=== PATIENT | female | born 1955 | race Caucasian/White ===

== ENCOUNTER → 2017-06-19 | Outpatient (CLI) | payer OTHER ==
[~2017-06-19] MED LIST: ALEVE220 M1 PO; CEFADROXIL500 MG PO; PAIN RELIEF500 MG PO; ULTRACET PO
== END | disposition home or self-care (01) ==
LOC: MRI 06-18 09:30
DX: M25.461 Effusion, right knee (principal)
CPT/HCPCS: 73721

== ENCOUNTER → 2017-06-19 | Emergency (ER) | payer OTHER ==
[~2017-06-19] VITALS: Ht 170.2 cm; Wt 71.2 kg
== END | disposition home or self-care (01) ==
LOC: ER 12:15
DX: M25.461 Effusion, right knee (principal)

== ENCOUNTER 2017-09-20 10:47 | Outpatient (CLI) | payer OTHER | END 2017-09-20 12:30 | disposition home or self-care (01) | LOC: MAMO-SONO 10:47 | DX: Z12.31 Encounter for screening mammogram for malignant neoplasm of breast (principal); R10.2 Pelvic and perineal pain; R10.84 Generalized abdominal pain; C50.112 Malignant neoplasm of central portion of left female breast ==

== ENCOUNTER → 2017-09-20 | Outpatient (CLI) | payer OTHER | END | disposition home or self-care (01) | LOC: LAB 10:37 | DX: C50.112 Malignant neoplasm of central portion of left female breast (principal); E03.8 Other specified hypothyroidism ==

== ENCOUNTER → 2017-11-07 | Outpatient (CLI) | payer OTHER | END | disposition home or self-care (01) | LOC: LAB 13:18 | DX: E03.8 Other specified hypothyroidism (principal) ==

== ENCOUNTER 2018-06-20 10:59 | Outpatient (CLI) | payer OTHER | END 2018-06-20 13:00 | disposition home or self-care (01) | LOC: MAMO-SONO 10:59 | DX: N60.29 Fibroadenosis of unspecified breast (principal); Z12.12 Encounter for screening for malignant neoplasm of rectum ==

== ENCOUNTER 2018-06-20 11:54 | Outpatient (CLI) | payer OTHER | END 2018-06-20 15:00 | disposition home or self-care (01) | LOC: LAB 11:54 | DX: Z00.8 Encounter for other general examination (principal) ==

== ENCOUNTER 2018-10-29 15:31 | Outpatient (CLI) | payer OTHER ==
[~2018-10-29 15:31] MED LIST changes: -ADVAIR 100-501 EACH; -AROMASIN25 MG; -SINGULAIR10 MG
[2018-10-29] MEDS ORDERED: AROMASIN25 MG (16:14)
[2018-10-29] MEDS ORDERED: ADVAIR 100-501 EACH (16:15)
[2018-10-29] MEDS ORDERED: SINGULAIR10 MG (16:15)
== END 2018-10-29 18:00 | disposition home or self-care (01) ==
LOC: LAB 15:31
DX: R10.13 Epigastric pain (principal)

== ENCOUNTER 2018-10-29 16:10 | Emergency (ER) | payer OTHER ==
[~2018-10-29] VITALS: Ht 170.2 cm; Wt 69.9 kg
[2018-10-29] MEDS ORDERED: AROMASIN25 MG (16:14)
[2018-10-29] MEDS ORDERED: ADVAIR 100-501 EACH (16:15)
[2018-10-29] MEDS ORDERED: SINGULAIR10 MG (16:15)
== END 2018-10-29 19:34 | disposition home or self-care (01) ==
LOC: ER 16:10
DX: K80.50 Calculus of bile duct without cholangitis or cholecystitis without obstruction (principal); J90 Pleural effusion, not elsewhere classified; R10.2 Pelvic and perineal pain

== ENCOUNTER → 2018-10-29 | Outpatient (CLI) | payer OTHER ==
[~2018-10-29] MED LIST changes: +ADVAIR 100-501 EACH; +AROMASIN25 MG; +SINGULAIR10 MG
== END | disposition home or self-care (01) ==
LOC: SONOGRAMA 15:18
DX: R10.13 Epigastric pain (principal)

== ENCOUNTER 2018-11-04 10:15 | Outpatient (CLI) | payer OTHER ==
[~2018-11-04 10:15] MED LIST changes: +ADVAIR 100-501 EACH; +AROMASIN25 MG; +SINGULAIR10 MG
== END 2018-11-04 14:09 | disposition home or self-care (01) ==
LOC: NUCLEAR 10:15
DX: J90 Pleural effusion, not elsewhere classified (principal)
CPT/HCPCS: 78815; A9552

== ENCOUNTER 2018-11-04 12:48 | Outpatient (CLI) | payer OTHER | END 2018-11-04 13:37 | disposition home or self-care (01) | LOC: LAB 12:48 | DX: D64.89 Other specified anemias (principal) ==

== ENCOUNTER 2018-11-20 11:00 | Outpatient (CLI) | payer OTHER | END 2018-11-20 11:06 | disposition home or self-care (01) | LOC: RAD 11:00 | DX: C50.412 Malignant neoplasm of upper-outer quadrant of left female breast (principal) ==

== ENCOUNTER → 2018-12-05 | Outpatient (CLI) | payer OTHER | END | disposition home or self-care (01) | LOC: RAD 12:08 | DX: J91.0 Malignant pleural effusion (principal) ==

== ENCOUNTER → 2018-12-16 11:48 | Outpatient (CLI) | payer OTHER | END | disposition home or self-care (01) | LOC: LAB 11:48 | DX: C50.412 Malignant neoplasm of upper-outer quadrant of left female breast (principal) ==

== ENCOUNTER → 2019-01-13 15:38 | Outpatient (CLI) | payer OTHER | END | disposition home or self-care (01) | LOC: LAB 15:38 | DX: C50.412 Malignant neoplasm of upper-outer quadrant of left female breast (principal) ==

== ENCOUNTER 2019-01-15 10:21 | Outpatient (CLI) | payer OTHER | END 2019-01-15 10:32 | disposition home or self-care (01) | LOC: RAD 10:21 | DX: C50.412 Malignant neoplasm of upper-outer quadrant of left female breast (principal) ==

== ENCOUNTER 2019-01-28 14:18 | Outpatient (CLI) | payer OTHER | END 2019-01-28 14:22 | disposition home or self-care (01) | LOC: LAB 14:18 | DX: Z51.11 Encounter for antineoplastic chemotherapy (principal) ==

== ENCOUNTER 2019-02-24 08:52 | Outpatient (CLI) | payer OTHER | END 2019-02-24 09:05 | disposition home or self-care (01) | LOC: NUCLEAR 08:52 | DX: C50.412 Malignant neoplasm of upper-outer quadrant of left female breast (principal); Z17.0 Estrogen receptor positive status [ER+]; C78.2 Secondary malignant neoplasm of pleura | CPT/HCPCS: 78816; A9552 ==

== ENCOUNTER → 2019-02-24 09:01 | Outpatient (CLI) | payer OTHER | END | disposition home or self-care (01) | LOC: LAB 09:01 | DX: C50.412 Malignant neoplasm of upper-outer quadrant of left female breast (principal); C78.2 Secondary malignant neoplasm of pleura ==

== ENCOUNTER → 2019-03-24 11:51 | Outpatient (CLI) | payer OTHER | END | disposition home or self-care (01) | LOC: LAB 11:51 | DX: C50.919 Malignant neoplasm of unspecified site of unspecified female breast (principal); J90 Pleural effusion, not elsewhere classified; Z19.2 Hormone resistant malignancy status ==

== ENCOUNTER 2019-04-18 12:46 | Outpatient (CLI) | payer OTHER | END 2019-04-18 12:55 | disposition home or self-care (01) | LOC: LAB 12:46 | DX: C50.412 Malignant neoplasm of upper-outer quadrant of left female breast (principal); C78.2 Secondary malignant neoplasm of pleura ==

== ENCOUNTER → 2019-06-02 12:21 | Outpatient (CLI) | payer OTHER | END | disposition home or self-care (01) | LOC: LAB 12:21 | DX: C50.412 Malignant neoplasm of upper-outer quadrant of left female breast (principal) ==

== ENCOUNTER 2019-06-06 09:16 | Outpatient (CLI) | payer OTHER | END 2019-06-06 09:37 | disposition home or self-care (01) | LOC: NUCLEAR 09:16 | DX: C50.412 Malignant neoplasm of upper-outer quadrant of left female breast (principal); C78.2 Secondary malignant neoplasm of pleura | CPT/HCPCS: 78815; A9552 ==

== ENCOUNTER → 2019-07-14 12:19 | Outpatient (CLI) | payer OTHER | END | disposition home or self-care (01) | LOC: LAB 12:19 | PROVIDERS: ATTEND Emergency Medicine | DX: C50.412 Malignant neoplasm of upper-outer quadrant of left female breast (principal); E78.2 Mixed hyperlipidemia ==

== ENCOUNTER → 2019-08-25 10:02 | Outpatient (CLI) | payer OTHER | END | disposition home or self-care (01) | LOC: LAB 10:02 | PROVIDERS: ATTEND Emergency Medicine | DX: N64.59 Other signs and symptoms in breast (principal) ==

== ENCOUNTER → 2019-09-19 14:05 | Outpatient (CLI) | payer OTHER | END | disposition home or self-care (01) | LOC: LAB 14:05 | PROVIDERS: ATTEND Emergency Medicine | DX: Z20.828 Contact with and (suspected) exposure to other viral communicable diseases (principal); C50.919 Malignant neoplasm of unspecified site of unspecified female breast; C50.619 Malignant neoplasm of axillary tail of unspecified female breast ==

== ENCOUNTER 2019-11-07 10:21 | Outpatient (CLI) | payer OTHER | END 2019-11-07 10:29 | disposition home or self-care (01) | LOC: NUCLEAR 10:21 | PROVIDERS: ATTEND Emergency Medicine | DX: C50.912 Malignant neoplasm of unspecified site of left female breast (principal); J90 Pleural effusion, not elsewhere classified | CPT/HCPCS: 78815; A9552 ==

== ENCOUNTER → 2019-11-07 10:42 | Outpatient (CLI) | payer OTHER | END | disposition home or self-care (01) | LOC: LAB 10:42 | PROVIDERS: ATTEND Emergency Medicine | DX: R97.1 Elevated cancer antigen 125 [CA 125] (principal); C50.919 Malignant neoplasm of unspecified site of unspecified female breast; N64.59 Other signs and symptoms in breast; J90 Pleural effusion, not elsewhere classified ==

== ENCOUNTER → 2019-11-07 | Outpatient (CLI) | payer OTHER | END | disposition home or self-care (01) | LOC: MAMO-SONO 09:09 | PROVIDERS: ATTEND Emergency Medicine | DX: Z12.31 Encounter for screening mammogram for malignant neoplasm of breast (principal); J91.8 Pleural effusion in other conditions classified elsewhere; C50.919 Malignant neoplasm of unspecified site of unspecified female breast ==

== ENCOUNTER → 2019-12-08 13:21 | Outpatient (CLI) | payer OTHER | END | disposition home or self-care (01) | LOC: LAB 13:21 | PROVIDERS: ATTEND Emergency Medicine | DX: J90 Pleural effusion, not elsewhere classified (principal); C44.501 Unspecified malignant neoplasm of skin of breast ==

== ENCOUNTER → 2020-01-19 | Outpatient (CLI) | payer OTHER | END | disposition home or self-care (01) | LOC: LAB 10:21 | PROVIDERS: ATTEND Emergency Medicine | DX: Z20.828 Contact with and (suspected) exposure to other viral communicable diseases (principal); J90 Pleural effusion, not elsewhere classified; R97.1 Elevated cancer antigen 125 [CA 125] ==

== ENCOUNTER 2020-03-16 09:23 | Outpatient (CLI) | payer OTHER | END 2020-03-16 12:09 | disposition home or self-care (01) | LOC: NUCLEAR 09:23 | PROVIDERS: ATTEND Emergency Medicine | DX: J90 Pleural effusion, not elsewhere classified (principal); R42 Dizziness and giddiness; R53.81 Other malaise; R07.9 Chest pain, unspecified | CPT/HCPCS: 78452; 93017; 93306; A9500 ==

== ENCOUNTER → 2020-03-18 11:31 | Outpatient (CLI) | payer OTHER | END | disposition home or self-care (01) | LOC: LAB 11:31 | PROVIDERS: ATTEND Emergency Medicine | DX: R97.1 Elevated cancer antigen 125 [CA 125] (principal); R42 Dizziness and giddiness; D64.89 Other specified anemias; J91.8 Pleural effusion in other conditions classified elsewhere; C50.919 Malignant neoplasm of unspecified site of unspecified female breast ==

== ENCOUNTER → 2020-03-19 | Outpatient (CLI) | payer OTHER | END | disposition home or self-care (01) | LOC: NUCLEAR 07:00 | PROVIDERS: ATTEND Emergency Medicine | DX: J90 Pleural effusion, not elsewhere classified (principal) | CPT/HCPCS: 78815; A9552 ==

== ENCOUNTER → 2020-04-12 11:17 | Outpatient (CLI) | payer OTHER | END | disposition home or self-care (01) | LOC: LAB 11:17 | PROVIDERS: ATTEND Emergency Medicine | DX: Z20.828 Contact with and (suspected) exposure to other viral communicable diseases (principal); J90 Pleural effusion, not elsewhere classified; R53.81 Other malaise; R97.1 Elevated cancer antigen 125 [CA 125] ==

== ENCOUNTER 2020-04-29 13:37 | Outpatient (CLI) | payer OTHER | END 2020-04-29 13:38 | disposition home or self-care (01) | LOC: LAB 13:37 | PROVIDERS: ATTEND Emergency Medicine | DX: R97.1 Elevated cancer antigen 125 [CA 125] (principal); J90 Pleural effusion, not elsewhere classified; N64.59 Other signs and symptoms in breast ==

== ENCOUNTER 2020-06-10 12:57 | Outpatient (CLI) | payer OTHER | END 2020-06-10 18:50 | disposition home or self-care (01) | LOC: LAB 12:57 | PROVIDERS: ATTEND Emergency Medicine | DX: C50.311 Malignant neoplasm of lower-inner quadrant of right female breast (principal); J90 Pleural effusion, not elsewhere classified ==

== ENCOUNTER → 2020-07-22 13:44 | Outpatient (CLI) | payer OTHER | END | disposition home or self-care (01) | LOC: LAB 13:44 | PROVIDERS: ATTEND Emergency Medicine | DX: J91.0 Malignant pleural effusion (principal) ==

== ENCOUNTER 2020-07-27 08:17 | Outpatient (CLI) | payer OTHER | END 2020-07-27 16:30 | disposition home or self-care (01) | LOC: MAMO-SONO 08:17 | PROVIDERS: ATTEND Emergency Medicine | DX: N60.11 Diffuse cystic mastopathy of right breast (principal); J90 Pleural effusion, not elsewhere classified ==

== ENCOUNTER 2020-07-27 09:05 | Outpatient (CLI) | payer OTHER | END 2020-07-27 09:07 | disposition home or self-care (01) | LOC: NUCLEAR 09:05 | PROVIDERS: ATTEND Emergency Medicine | DX: C50.012 Malignant neoplasm of nipple and areola, left female breast (principal); J90 Pleural effusion, not elsewhere classified | CPT/HCPCS: 78815; A9552 ==

== ENCOUNTER 2020-09-17 09:34 | Outpatient (CLI) | payer OTHER | END 2020-09-17 09:37 | disposition home or self-care (01) | LOC: LAB 09:34 | PROVIDERS: ATTEND Emergency Medicine | DX: U07.1 COVID-19 (principal); R05 Cough ==

== ENCOUNTER → 2020-09-17 10:03 | Outpatient (CLI) | payer OTHER | END | disposition home or self-care (01) | LOC: RAD 10:03 | DX: J90 Pleural effusion, not elsewhere classified (principal); I10 Essential (primary) hypertension ==

== ENCOUNTER 2020-09-30 08:00 | Outpatient (CLI) | payer OTHER | END 2020-09-30 08:30 | disposition home or self-care (01) | LOC: PPH VACUNA 08:00 | DX: Z23 Encounter for immunization (principal) ==

== ENCOUNTER → 2020-11-02 12:15 | Outpatient (CLI) | payer OTHER | END | disposition home or self-care (01) | LOC: LAB 12:15 | PROVIDERS: ATTEND Emergency Medicine | DX: C50.919 Malignant neoplasm of unspecified site of unspecified female breast (principal); J91.0 Malignant pleural effusion ==

== ENCOUNTER → 2020-11-08 08:06 | Outpatient (CLI) | payer OTHER | END | disposition home or self-care (01) | LOC: RAD 08:06 | PROVIDERS: ATTEND Emergency Medicine | DX: J91.0 Malignant pleural effusion (principal) ==

== ENCOUNTER 2020-12-16 10:03 | Outpatient (CLI) | payer OTHER | END 2020-12-16 10:30 | disposition home or self-care (01) | LOC: TOM 10:03 | PROVIDERS: ATTEND Emergency Medicine | DX: J70.1 Chronic and other pulmonary manifestations due to radiation (principal); J70.0 Acute pulmonary manifestations due to radiation ==

== ENCOUNTER 2021-01-18 11:30 | Outpatient (CLI) | payer OTHER | END 2021-01-18 11:31 | disposition home or self-care (01) | LOC: LAB 11:30 | PROVIDERS: ATTEND Emergency Medicine | DX: C44.521 Squamous cell carcinoma of skin of breast (principal); J70.0 Acute pulmonary manifestations due to radiation ==

== ENCOUNTER 2021-01-21 08:52 | Outpatient (CLI) | payer OTHER | END 2021-01-21 08:57 | disposition home or self-care (01) | LOC: NUCLEAR 08:52 | PROVIDERS: ATTEND Emergency Medicine | DX: C50.812 Malignant neoplasm of overlapping sites of left female breast (principal); J91.0 Malignant pleural effusion; J70.0 Acute pulmonary manifestations due to radiation | CPT/HCPCS: 78815; A9552 ==

== ENCOUNTER 2021-02-18 10:48 | Outpatient (CLI) | payer OTHER | END 2021-02-18 15:29 | disposition home or self-care (01) | LOC: LAB 10:48 | PROVIDERS: ATTEND Emergency Medicine | DX: J70.0 Acute pulmonary manifestations due to radiation (principal); J91.0 Malignant pleural effusion; C50.919 Malignant neoplasm of unspecified site of unspecified female breast ==

== ENCOUNTER → 2021-02-18 | Outpatient (CLI) | payer OTHER | END | disposition home or self-care (01) | LOC: TOM 10:52 | PROVIDERS: ATTEND Emergency Medicine | DX: J96.01 Acute respiratory failure with hypoxia (principal); Q34.0 Anomaly of pleura; J96.90 Respiratory failure, unspecified, unspecified whether with hypoxia or hypercapnia ==

== ENCOUNTER 2021-03-16 10:13 | Outpatient (CLI) | payer OTHER | END 2021-03-16 10:15 | disposition home or self-care (01) | LOC: SONOGRAMA 10:13 | PROVIDERS: ATTEND Emergency Medicine | DX: J70.0 Acute pulmonary manifestations due to radiation (principal); R97.1 Elevated cancer antigen 125 [CA 125] ==

== ENCOUNTER 2021-03-24 09:44 | Outpatient (CLI) | payer OTHER | END 2021-03-24 09:45 | disposition home or self-care (01) | LOC: LAB 09:44 | PROVIDERS: ATTEND Emergency Medicine | DX: J70.0 Acute pulmonary manifestations due to radiation (principal); J90 Pleural effusion, not elsewhere classified ==

== ENCOUNTER 2021-04-21 13:57 | Outpatient (CLI) | payer OTHER | END 2021-04-21 14:12 | disposition home or self-care (01) | LOC: LAB 13:57 | PROVIDERS: ATTEND Emergency Medicine | DX: C50.919 Malignant neoplasm of unspecified site of unspecified female breast (principal); C78.00 Secondary malignant neoplasm of unspecified lung; D51.0 Vitamin B12 deficiency anemia due to intrinsic factor deficiency ==

== ENCOUNTER 2021-05-17 08:00 | Outpatient (CLI) | payer OTHER | END 2021-05-17 08:30 | disposition home or self-care (01) | LOC: PPH VACUNA 08:00 | PROVIDERS: ATTEND Emergency Medicine Pediatric Emergency Medicine | DX: Z23 Encounter for immunization (principal) ==

== ENCOUNTER → 2021-05-17 08:48 | Outpatient (CLI) | payer OTHER | END | disposition home or self-care (01) | LOC: NUCLEAR 08:30 | PROVIDERS: ATTEND Emergency Medicine | DX: I11.9 Hypertensive heart disease without heart failure (principal) ==

== ENCOUNTER 2021-05-17 09:28 | Outpatient (CLI) | payer OTHER | END 2021-05-17 11:06 | disposition home or self-care (01) | LOC: RAD 09:28 | PROVIDERS: ATTEND Surgery | DX: J70.0 Acute pulmonary manifestations due to radiation (principal); J70.1 Chronic and other pulmonary manifestations due to radiation ==

== ENCOUNTER → 2021-06-06 12:00 | Outpatient (CLI) | payer OTHER | END | disposition home or self-care (01) | LOC: LAB 12:00 | PROVIDERS: ATTEND Internal Medicine | DX: C50.412 Malignant neoplasm of upper-outer quadrant of left female breast (principal); C78.2 Secondary malignant neoplasm of pleura; D51.9 Vitamin B12 deficiency anemia, unspecified; D51.0 Vitamin B12 deficiency anemia due to intrinsic factor deficiency; E27.2 Addisonian crisis ==

== ENCOUNTER → 2021-06-08 09:30 | Outpatient (CLI) | payer OTHER | END | disposition home or self-care (01) | LOC: LAB 09:30 | PROVIDERS: ATTEND Emergency Medicine | DX: D51.9 Vitamin B12 deficiency anemia, unspecified (principal); J70.1 Chronic and other pulmonary manifestations due to radiation; J90 Pleural effusion, not elsewhere classified ==

== ENCOUNTER 2021-09-19 08:27 | Outpatient (CLI) | payer OTHER | END 2021-09-19 08:45 | disposition home or self-care (01) | LOC: MRI 08:27 | PROVIDERS: ATTEND Internal Medicine | DX: G44.011 Episodic cluster headache, intractable (principal) | CPT/HCPCS: 70553 ==

== ENCOUNTER 2021-12-31 18:06 | Emergency (ER) | payer OTHER ==
[~2021-12-31] VITALS: Ht 165.1 cm; Wt 65.8 kg
[2021-12-31] MEDS ORDERED: LEVOFLOXACIN750 MG PO (21:58)
== END 2021-12-31 22:12 | disposition home or self-care (01) ==
LOC: ER 18:06
DX: J44.1 Chronic obstructive pulmonary disease with (acute) exacerbation (principal); J90 Pleural effusion, not elsewhere classified; Z20.822 Contact with and (suspected) exposure to COVID-19; Z88.8 Allergy status to other drugs, medicaments and biological substances

== ENCOUNTER 2022-06-02 05:45 | Day surgery (SDC) | payer OTHER ==
[~2022-06-02 05:45] MED LIST changes: +BACTRIM DS TAB1 EACH PO; +CELEBREX200MG PO; +IBRANCE125 M1 PO; +LEVOFLOXACIN750 MG PO; +PREDNISONE10 M2 PO; +PRILOSEC OTC20 MG PO; +SINGULAIR4 M1 PO
[2022-06-02] MEDS ORDERED: TRAM1TAB98 PO (07:51)
== END 2022-06-02 11:15 | disposition home or self-care (01) ==
LOC: CIR.AMB 05:45
PROVIDERS: ATTEND Surgery
DX: C50.219 Malignant neoplasm of upper-inner quadrant of unspecified female breast (principal); Z88.6 Allergy status to analgesic agent; Z20.822 Contact with and (suspected) exposure to COVID-19; E03.9 Hypothyroidism, unspecified

== ENCOUNTER 2022-07-17 08:34 | Outpatient (CLI) | payer OTHER ==
[~2022-07-17 08:34] MED LIST changes: +TRAM1TAB98 PO
== END 2022-07-17 09:00 | disposition home or self-care (01) ==
LOC: LAB 08:34
PROVIDERS: ATTEND Emergency Medicine
DX: C50.411 Malignant neoplasm of upper-outer quadrant of right female breast (principal)

== ENCOUNTER → 2022-08-07 09:13 | Outpatient (CLI) | payer OTHER | END | disposition home or self-care (01) | LOC: LAB 09:13 | PROVIDERS: ATTEND Emergency Medicine | DX: D51.0 Vitamin B12 deficiency anemia due to intrinsic factor deficiency (principal); J70.0 Acute pulmonary manifestations due to radiation; C50.919 Malignant neoplasm of unspecified site of unspecified female breast ==

== ENCOUNTER 2022-08-24 11:48 | Outpatient (CLI) | payer OTHER | END 2022-08-25 08:39 | disposition home or self-care (01) | LOC: TOM 11:48 | PROVIDERS: ATTEND Emergency Medicine | DX: J70.0 Acute pulmonary manifestations due to radiation (principal); J91.0 Malignant pleural effusion; C78.7 Secondary malignant neoplasm of liver and intrahepatic bile duct; C50.919 Malignant neoplasm of unspecified site of unspecified female breast | CPT/HCPCS: 71260; 74177; Q9965 ==

== ENCOUNTER 2022-08-31 08:20 | Outpatient (CLI) | payer OTHER | END 2022-08-31 14:15 | disposition home or self-care (01) | LOC: LAB 08:20 | PROVIDERS: ATTEND Emergency Medicine | DX: C50.011 Malignant neoplasm of nipple and areola, right female breast (principal); R97.1 Elevated cancer antigen 125 [CA 125]; J90 Pleural effusion, not elsewhere classified ==

== ENCOUNTER 2022-10-11 13:33 | Outpatient (CLI) | payer OTHER | END 2022-10-11 13:35 | disposition home or self-care (01) | LOC: LAB 13:33 | PROVIDERS: ATTEND Emergency Medicine | DX: C44.521 Squamous cell carcinoma of skin of breast (principal); J70.0 Acute pulmonary manifestations due to radiation; N60.29 Fibroadenosis of unspecified breast ==

== ENCOUNTER 2022-12-12 13:40 | Emergency (ER) | payer OTHER ==
[~2022-12-12] VITALS: Ht 170.2 cm; Wt 56.7 kg
[2022-12-12 14:43] LABS: URINE APPEARANCE Clear; URINE BILIRRUBIN Negative (NEGATIVE); URINE BLOOD Negative; URINE COLOR Yellow; URINE GLUCOSE Negative (NEGATIVE); URINE LEUKOCYTE Negative; URINE NITRATE Negative; URINE PROTEIN Trace (NEGATIVE); URINE UROBILINOGEN 0.2 E.U./dl
[2022-12-12 14:47] LABS: URINE EPITHELIAL CELLS 1.8 uL (0.0-38.8); URINE RBC 2.5 uL (0.0-20.8)
[2022-12-12 14:50] LABS: URINE WBC 1.5 uL (0.0-23.2)
[2022-12-12 14:52] LABS: HEMOGLOBIN 12.1 g/dL (12.0-15.00); MEAN CELL VOLUME 90.5 fL (80.00-100.00); MEAN CORPUSCULAR HEMOGLOBIN 31.2 pg (27.00-32.0); MEAN CORPUSCULAR HGB CONC 34.5 g/dl (32.0-36.0); PLATELET COUNT 237 K/uL (150-450); RED BLOOD COUNT 3.87 M/uL (4.00-6.00); RED CELL DISTRIBUTION WIDTH 15.1 % (11.5-14.5)
[2022-12-12 15:12] LABS: ALBUMIN 3.5 gm/dL (3.4-5.0); ALKALINE PHOSPHATASE 90 U/L (50-136); ALT/SGPT 22 U/L (12-78); ANION GAP 10 (10.0-20.0); AST/SGOT 23 U/L (15-37); BILIRUBIN TOTAL 0.23 mg/dL (0.3-1.2); BILIRUBIN,CONJUGATED < 0.10 mg/dL (0.0-0.2); BILIRUBIN,UNCONJUGATED 0.13 mg/dL (0.0-0.6); BLOOD UREA NITROGEN 16 mg/dL (7-18); BUN CREA RATIO 24 (7.0-25.0); CALCIUM 9.4 mg/dL (8.5-10.1); CARBON DIOXIDE 28 mEq/L (21-32); CHLORIDE 105 mmol/L (98-107); CREATININE SERUM 0.67 mg/dL (0.55-1.02); GFR 87.53; GLOBULINA 3.9 G/DL (2.4-3.5); GLUCOSE FASTING 108 mg/dL (65-100); LDH 196 U/L (84-246); OSMOLALITY SERUM 279 MOSM/KG (275-295); POTASSIUM 3.97 mEq/L (3.5-5.1); SODIUM 139 mmol/L (136-145); TOTAL PROTEIN 7.4 gm/dL (6.4-8.2)
== END 2022-12-12 16:14 | disposition home or self-care (01) ==
LOC: ER 13:40
PROVIDERS: Emergency Medicine
DX: R06.02 Shortness of breath (principal); C50.912 Malignant neoplasm of unspecified site of left female breast; E03.9 Hypothyroidism, unspecified; Z88.8 Allergy status to other drugs, medicaments and biological substances; Z91.014 Allergy to mammalian meats; Z87.09 Personal history of other diseases of the respiratory system; Z20.822 Contact with and (suspected) exposure to COVID-19

== ENCOUNTER 2022-12-12 14:51 | Outpatient (CLI) | payer OTHER ==
[2022-12-14 09:08] LABS: CA 125 14.5 U/mL (0.0-38.1); CA 15-3 67.1 U/mL (0.0-25.0); CA 27.29 110.3 U/mL (0.0-38.6)
== END 2022-12-12 14:57 | disposition home or self-care (01) ==
LOC: LAB 14:51
PROVIDERS: ATTEND Surgery
DX: C50.011 Malignant neoplasm of nipple and areola, right female breast (principal); R97.1 Elevated cancer antigen 125 [CA 125]; J91.0 Malignant pleural effusion

== ENCOUNTER 2023-01-17 14:52 | Outpatient (CLI) | payer OTHER ==
[2023-01-17 15:45] LABS: HEMATOCRIT 34.9 % (36.0-45.00); HEMOGLOBIN 11.9 g/dL (12.0-15.00); MEAN CELL VOLUME 91.1 fL (80.00-100.00); PLATELET COUNT 175 K/uL (150-450); RED BLOOD COUNT 3.83 M/uL (4.00-6.00); RED CELL DISTRIBUTION WIDTH 14.5 % (11.5-14.5)
[2023-01-17 16:25] LABS: ALBUMIN 3.4 gm/dL (3.4-5.0); BILIRUBIN TOTAL 0.36 mg/dL (0.3-1.2); CREATININE SERUM 0.72 mg/dL (0.55-1.02); GFR 80.55; GLOBULINA 3.2 G/DL (2.4-3.5); POTASSIUM 4.05 mEq/L (3.5-5.1); TOTAL PROTEIN 6.6 gm/dL (6.4-8.2)
== END 2023-01-17 14:53 | disposition home or self-care (01) ==
LOC: LAB 14:52
PROVIDERS: ATTEND Emergency Medicine
DX: C50.411 Malignant neoplasm of upper-outer quadrant of right female breast (principal)

== ENCOUNTER 2023-01-22 11:02 | Outpatient (CLI) | payer OTHER ==
[2023-01-22 12:04] LABS: AMYLASE 49 U/L (25-115); LIPASE 25 U/L (13-75)
[2023-01-24 10:08] LABS: CA 15-3 64.8 U/mL (0.0-25.0)
[2023-01-24 16:11] LABS: CA 27.29 125.5 U/mL (0.0-38.6)
== END 2023-01-22 11:04 | disposition home or self-care (01) ==
LOC: LAB 11:02
PROVIDERS: ATTEND Emergency Medicine
DX: C44.521 Squamous cell carcinoma of skin of breast (principal); J70.8 Respiratory conditions due to other specified external agents

== ENCOUNTER 2023-01-31 15:31 | Outpatient (CLI) | payer OTHER | END 2023-01-31 15:44 | disposition home or self-care (01) | LOC: LAB 15:31 | PROVIDERS: ATTEND Emergency Medicine | DX: J70.0 Acute pulmonary manifestations due to radiation (principal); J91.0 Malignant pleural effusion; Z88.6 Allergy status to analgesic agent; Z91.018 Allergy to other foods ==

== ENCOUNTER 2023-02-07 17:52 | Outpatient (CLI) | payer OTHER ==
[2023-02-07 18:58] LABS: HEMATOCRIT 33.2 % (36.0-45.00); HEMOGLOBIN 11.4 g/dL (12.0-15.00); MEAN CELL VOLUME 89.3 fL (80.00-100.00); MEAN CORPUSCULAR HEMOGLOBIN 30.5 pg (27.00-32.0); MEAN CORPUSCULAR HGB CONC 34.2 g/dl (32.0-36.0); PLATELET COUNT 217 K/uL (150-450); RED BLOOD COUNT 3.72 M/uL (4.00-6.00); RED CELL DISTRIBUTION WIDTH 14.5 % (11.5-14.5)
[2023-02-07 19:14] LABS: ALBUMIN 3.4 gm/dL (3.4-5.0); BILIRUBIN TOTAL 0.27 mg/dL (0.3-1.2); CALCIUM 9.2 mg/dL (8.5-10.1); CREATININE SERUM 0.66 mg/dL (0.55-1.02); GFR 89.06; GLOBULINA 3.6 G/DL (2.4-3.5); POTASSIUM 3.98 mEq/L (3.5-5.1)
== END 2023-02-07 17:58 | disposition home or self-care (01) ==
LOC: LAB 17:52
PROVIDERS: ATTEND Emergency Medicine
DX: C50.919 Malignant neoplasm of unspecified site of unspecified female breast (principal); J70.1 Chronic and other pulmonary manifestations due to radiation

== ENCOUNTER 2023-02-21 16:00 | Outpatient (CLI) | payer OTHER ==
[2023-02-21 16:55] LABS: HEMATOCRIT 35.8 % (36.0-45.00); HEMOGLOBIN 11.9 g/dL (12.0-15.00); MEAN CELL VOLUME 90.4 fL (80.00-100.00); MEAN CORPUSCULAR HGB CONC 33.2 g/dl (32.0-36.0); PLATELET COUNT 243 K/uL (150-450); RED BLOOD COUNT 3.97 M/uL (4.00-6.00); RED CELL DISTRIBUTION WIDTH 15.5 % (11.5-14.5)
[2023-02-21 17:03] LABS: ALBUMIN 3.6 gm/dL (3.4-5.0); BILIRUBIN TOTAL 0.33 mg/dL (0.3-1.2); CALCIUM 9.5 mg/dL (8.5-10.1); CREATININE SERUM 0.7 mg/dL (0.55-1.02); GFR 83.21; POTASSIUM 4.25 mEq/L (3.5-5.1); TOTAL PROTEIN 6.6 gm/dL (6.4-8.2)
== END 2023-02-21 16:10 | disposition home or self-care (01) ==
LOC: LAB 16:00
PROVIDERS: ATTEND Emergency Medicine
DX: C50.019 Malignant neoplasm of nipple and areola, unspecified female breast (principal); J70.1 Chronic and other pulmonary manifestations due to radiation; J91.0 Malignant pleural effusion

== ENCOUNTER 2023-02-28 14:31 | Outpatient (CLI) | payer OTHER ==
[2023-02-28 14:36] LABS: HEMOGLOBIN 11.8 g/dL (12.0-15.00); MEAN CELL VOLUME 89.7 fL (80.00-100.00); MEAN CORPUSCULAR HEMOGLOBIN 30.1 pg (27.00-32.0); MEAN CORPUSCULAR HGB CONC 33.6 g/dl (32.0-36.0); PLATELET COUNT 228 K/uL (150-450); RED CELL DISTRIBUTION WIDTH 15.5 % (11.5-14.5)
[2023-02-28 14:37] LABS: ALBUMIN 3.4 gm/dL (3.4-5.0); BILIRUBIN TOTAL 0.36 mg/dL (0.3-1.2); CALCIUM 8.9 mg/dL (8.5-10.1); CREATININE SERUM 0.68 mg/dL (0.55-1.02); GFR 86.04; POTASSIUM 4.29 mEq/L (3.5-5.1); TOTAL PROTEIN 6.4 gm/dL (6.4-8.2); TSH 3.04 uIU/mL (0.358-3.74)
== END 2023-02-28 15:01 | disposition home or self-care (01) ==
LOC: LAB 14:31
PROVIDERS: ATTEND Emergency Medicine
DX: J70.1 Chronic and other pulmonary manifestations due to radiation (principal); J90 Pleural effusion, not elsewhere classified; E03.8 Other specified hypothyroidism; E55.9 Vitamin D deficiency, unspecified; E11.9 Type 2 diabetes mellitus without complications; D51.0 Vitamin B12 deficiency anemia due to intrinsic factor deficiency

== ENCOUNTER 2023-03-14 14:35 | Outpatient (CLI) | payer OTHER ==
[2023-03-14 14:43] LABS: HEMATOCRIT 35.9 % (36.0-45.00); HEMOGLOBIN 12.1 g/dL (12.0-15.00); MEAN CELL VOLUME 92.4 fL (80.00-100.00); MEAN CORPUSCULAR HGB CONC 33.6 g/dl (32.0-36.0); PLATELET COUNT 257 K/uL (150-450); RED BLOOD COUNT 3.89 M/uL (4.00-6.00); RED CELL DISTRIBUTION WIDTH 15.8 % (11.5-14.5)
[2023-03-14 15:22] LABS: ALBUMIN 3.7 gm/dL (3.4-5.0); BILIRUBIN TOTAL 0.43 mg/dL (0.3-1.2); CALCIUM 9.3 mg/dL (8.5-10.1); CREATININE SERUM 0.67 mg/dL (0.55-1.02); GFR 87.53; POTASSIUM 4.08 mEq/L (3.5-5.1); TOTAL PROTEIN 6.7 gm/dL (6.4-8.2)
== END 2023-03-14 14:42 | disposition home or self-care (01) ==
LOC: LAB 14:35
PROVIDERS: ATTEND Emergency Medicine
DX: C50.019 Malignant neoplasm of nipple and areola, unspecified female breast (principal); J70.0 Acute pulmonary manifestations due to radiation

== ENCOUNTER 2023-03-21 13:58 | Outpatient (CLI) | payer OTHER ==
[2023-03-21 14:26] LABS: HEMATOCRIT 34.3 % (36.0-45.00); HEMOGLOBIN 11.6 g/dL (12.0-15.00); MEAN CORPUSCULAR HEMOGLOBIN 31.2 pg (27.00-32.0); MEAN CORPUSCULAR HGB CONC 33.9 g/dl (32.0-36.0); PLATELET COUNT 218 K/uL (150-450); RED BLOOD COUNT 3.72 M/uL (4.00-6.00); RED CELL DISTRIBUTION WIDTH 15.3 % (11.5-14.5)
[2023-03-21 14:59] LABS: ALBUMIN 3.6 gm/dL (3.4-5.0); BILIRUBIN TOTAL 0.43 mg/dL (0.3-1.2); CALCIUM 8.9 mg/dL (8.5-10.1); CREATININE SERUM 0.62 mg/dL (0.55-1.02); GFR 95.72; GLOBULINA 2.9 G/DL (2.4-3.5); POTASSIUM 3.99 mEq/L (3.5-5.1); TOTAL PROTEIN 6.5 gm/dL (6.4-8.2); TSH 2.93 uIU/mL (0.358-3.74)
[2023-03-23 08:10] LABS: CA 27.29 140.7 U/mL (0.0-38.6)
[2023-03-23 10:09] LABS: CA 125 12.4 U/mL (0.0-38.1); CA 15-3 86.6 U/mL (0.0-25.0)
== END 2023-03-21 14:13 | disposition home or self-care (01) ==
LOC: LAB 13:58
PROVIDERS: ATTEND Emergency Medicine
DX: C50.019 Malignant neoplasm of nipple and areola, unspecified female breast (principal); J70.1 Chronic and other pulmonary manifestations due to radiation; J91.0 Malignant pleural effusion; D51.9 Vitamin B12 deficiency anemia, unspecified

== ENCOUNTER 2023-03-29 08:21 | Outpatient (CLI) | payer OTHER | END 2023-03-29 08:23 | disposition home or self-care (01) | LOC: NUCLEAR 08:21 | PROVIDERS: ATTEND Emergency Medicine | DX: C44.521 Squamous cell carcinoma of skin of breast (principal) ==

== ENCOUNTER 2023-04-17 10:24 | Outpatient (CLI) | payer OTHER ==
[2023-04-17 11:20] LABS: HEMATOCRIT 35.1 % (36.0-45.00); HEMOGLOBIN 11.9 g/dL (12.0-15.00); MEAN CELL VOLUME 94.1 fL (80.00-100.00); MEAN CORPUSCULAR HEMOGLOBIN 31.8 pg (27.00-32.0); MEAN CORPUSCULAR HGB CONC 33.9 g/dl (32.0-36.0); PLATELET COUNT 215 K/uL (150-450); RED BLOOD COUNT 3.73 M/uL (4.00-6.00); RED CELL DISTRIBUTION WIDTH 16.4 % (11.5-14.5)
[2023-04-17 12:18] LABS: ALBUMIN 3.7 gm/dL (3.4-5.0); BILIRUBIN TOTAL 0.49 mg/dL (0.3-1.2); CALCIUM 9.6 mg/dL (8.5-10.1); CREATININE SERUM 0.67 mg/dL (0.55-1.02); GFR 87.53; GLOBULINA 2.8 G/DL (2.4-3.5); POTASSIUM 4.1 mEq/L (3.5-5.1); TOTAL PROTEIN 6.5 gm/dL (6.4-8.2)
== END 2023-04-17 15:35 | disposition home or self-care (01) ==
LOC: LAB 10:24
PROVIDERS: ATTEND Emergency Medicine
DX: J70.1 Chronic and other pulmonary manifestations due to radiation (principal); J70.0 Acute pulmonary manifestations due to radiation

== ENCOUNTER 2023-05-12 13:16 | Emergency (ER) | payer OTHER ==
[~2023-05-12] VITALS: Ht 170.2 cm; Wt 63.5 kg
[2023-05-12] MEDS ORDERED: KETOROLAC TROMETHAMINE 15 MG VIAL IV STA ×2 (13:22→21:17)
[2023-05-12] MEDS ORDERED: MEROPENEM 1,000 MG VIAL IV ONE (13:30)
[2023-05-12] MEDS ORDERED: DEXTROSE 5 % AND 0.9 % NACL 1,000 ML IV SCH (13:30)
[2023-05-12 14:15] LABS: HEMATOCRIT 31.6 % (36.0-45.00); MEAN CELL VOLUME 94.8 fL (80.00-100.00); MEAN CORPUSCULAR HGB CONC 34.8 g/dl (32.0-36.0); RED BLOOD COUNT 3.34 M/uL (4.00-6.00); RED CELL DISTRIBUTION WIDTH 18.2 % (11.5-14.5)
[2023-05-12 14:28] LABS: INR 1.19; PARTIAL THROMBOPLASTIN TIME 25.9 SECONDS (22.0-34.0); PROTHROMBIN TIME 12.3 SECONDS (9.0-11.5)
[2023-05-12 14:34] LABS: ALBUMIN 3.9 gm/dL (3.4-5.0); BILIRUBIN TOTAL 0.72 mg/dL (0.3-1.2); CALCIUM 8.9 mg/dL (8.5-10.1); CREATININE SERUM 0.76 mg/dL (0.55-1.02); GFR 75.68; POTASSIUM 3.84 mEq/L (3.5-5.1); TOTAL PROTEIN 6.9 gm/dL (6.4-8.2)
[2023-05-12 14:37] LABS: C-REACTIVE PROTEIN 1.35 MG/DL (0.00-0.29)
[2023-05-12 15:14] LABS: PLATELET COUNT 195 K/uL (150-450)
[2023-05-12 15:15] LABS: ERYTHROCYTE SEDIMENTATION RATE 33 mm/hr
[2023-05-12 16:01] LABS: URINE APPEARANCE Clear; URINE BILIRRUBIN Negative (NEGATIVE); URINE BLOOD Negative; URINE COLOR Yellow; URINE LEUKOCYTE Negative; URINE NITRATE Negative; URINE PROTEIN Negative (NEGATIVE); URINE UROBILINOGEN 0.2 E.U./dl
[2023-05-12 16:04] LABS: URINE BACTERIA 8.8 uL (0.0-1933); URINE RBC 2.8 uL (0.0-20.8)
[2023-05-12 16:26] LABS: URINE GLUCOSE 100 MG/DL (NEGATIVE)
[2023-05-12 20:06] LABS: ABG PH 7.464 (7.35-7.45); ABG pCO2 32.5 mmHg (35-45)
[2023-05-12 20:07] LABS: ABG PO2 69.4 mmHg (80-100); BASE EXCESS -0.1 mmol/l; BICARBONATE 22.8 mmol/l (23-25); SaO2 94.8 %; Tco2 23.8 mmol/l; allen test SATISFACTORY; o2 21 %; puncture site RADIAL RIGHT
[2023-05-12] MEDS ORDERED: ERTAPENEM SODIUM 1,000 MG VIAL IV STA (20:51)
== END 2023-05-13 00:15 | disposition home or self-care (01) ==
LOC: ER 13:16
PROVIDERS: Emergency Medicine
DX: R68.83 Chills (without fever) (principal); C50.919 Malignant neoplasm of unspecified site of unspecified female breast; C78.7 Secondary malignant neoplasm of liver and intrahepatic bile duct; C78.2 Secondary malignant neoplasm of pleura; Z91.018 Allergy to other foods; Z88.8 Allergy status to other drugs, medicaments and biological substances; J45.909 Unspecified asthma, uncomplicated; Z20.822 Contact with and (suspected) exposure to COVID-19

== ENCOUNTER 2023-05-21 09:20 | Outpatient (CLI) | payer OTHER ==
[2023-05-21 09:56] LABS: URINE APPEARANCE Cloudy; URINE BILIRRUBIN Negative (NEGATIVE); URINE BLOOD Negative; URINE COLOR Yellow; URINE GLUCOSE Negative (NEGATIVE); URINE LEUKOCYTE Negative; URINE NITRATE Negative; URINE PROTEIN Negative (NEGATIVE); URINE UROBILINOGEN 0.2 E.U./dl
[2023-05-21 09:57] LABS: HEMATOCRIT 31.6 % (36.0-45.00); HEMOGLOBIN 10.7 g/dL (12.0-15.00); MEAN CELL VOLUME 92.4 fL (80.00-100.00); MEAN CORPUSCULAR HEMOGLOBIN 31.2 pg (27.00-32.0); MEAN CORPUSCULAR HGB CONC 33.8 g/dl (32.0-36.0); PLATELET COUNT 180 K/uL (150-450); RED BLOOD COUNT 3.42 M/uL (4.00-6.00); RED CELL DISTRIBUTION WIDTH 18.1 % (11.5-14.5); URINE BACTERIA 7.5 uL (0.0-1933); URINE EPITHELIAL CELLS 9.2 uL (0.0-38.8); URINE RBC 5.1 uL (0.0-20.8); URINE WBC 9.7 uL (0.0-23.2)
[2023-05-21 09:58] LABS: ALBUMIN 3.1 gm/dL (3.4-5.0); BILIRUBIN TOTAL 0.42 mg/dL (0.3-1.2); CALCIUM 9.1 mg/dL (8.5-10.1); CREATININE SERUM 0.82 mg/dL (0.55-1.02); GFR 69.32; GLOBULINA 3.2 G/DL (2.4-3.5); POTASSIUM 4.48 mEq/L (3.5-5.1); TOTAL PROTEIN 6.3 gm/dL (6.4-8.2); TSH 3.58 uIU/mL (0.358-3.74)
[2023-05-22 07:07] LABS: CA 27.29 120.2 U/mL (0.0-38.6)
[2023-05-22 09:07] LABS: CA 125 21.3 U/mL (0.0-38.1)
[2023-05-22 13:07] LABS: VITAMIN D 1 25 40.5 pg/mL (24.8-81.5)
== END 2023-05-21 10:30 | disposition home or self-care (01) ==
LOC: LAB 09:20
PROVIDERS: ATTEND Emergency Medicine
DX: E11.9 Type 2 diabetes mellitus without complications (principal); R97.1 Elevated cancer antigen 125 [CA 125]; R97.0 Elevated carcinoembryonic antigen [CEA]; R97.8 Other abnormal tumor markers; R94.6 Abnormal results of thyroid function studies; J70.1 Chronic and other pulmonary manifestations due to radiation; J90 Pleural effusion, not elsewhere classified; N39.0 Urinary tract infection, site not specified

== ENCOUNTER 2023-08-30 08:48 | Outpatient (CLI) | payer OTHER | END 2023-08-30 08:49 | disposition home or self-care (01) | LOC: NUCLEAR 08:48 | PROVIDERS: ATTEND Emergency Medicine | DX: C50.012 Malignant neoplasm of nipple and areola, left female breast (principal); J70.0 Acute pulmonary manifestations due to radiation; J90 Pleural effusion, not elsewhere classified ==

== ENCOUNTER 2023-08-30 09:28 | Outpatient (CLI) | payer OTHER ==
[2023-08-30 10:05] LABS: HEMATOCRIT 29.5 % (36.0-45.00); HEMOGLOBIN 10.2 g/dL (12.0-15.00); MEAN CELL VOLUME 103.3 fL (80.00-100.00); MEAN CORPUSCULAR HEMOGLOBIN 35.6 pg (27.00-32.0); MEAN CORPUSCULAR HGB CONC 34.5 g/dl (32.0-36.0); RED BLOOD COUNT 2.86 M/uL (4.00-6.00); RED CELL DISTRIBUTION WIDTH 18.3 % (11.5-14.5)
[2023-08-30 10:28] LABS: PLATELET COUNT 121 K/uL (150-450)
[2023-08-30 10:32] LABS: INR 1.14; PARTIAL THROMBOPLASTIN TIME 31.3 SECONDS (22.0-34.0); PROTHROMBIN TIME 11.9 SECONDS (9.0-11.5)
[2023-08-30 11:04] LABS: ALBUMIN 3.8 gm/dL (3.4-5.0); BILIRUBIN TOTAL 0.65 mg/dL (0.3-1.2); CALCIUM 9.5 mg/dL (8.5-10.1); CREATININE SERUM 0.55 mg/dL (0.55-1.02); GFR 109.59; GLOBULINA 3.4 G/DL (2.4-3.5); POTASSIUM 3.79 mEq/L (3.5-5.1); TOTAL PROTEIN 7.2 gm/dL (6.4-8.2)
[2023-08-31 09:10] LABS: CA 125 12.9 U/mL (0.0-38.1)
[2023-08-31 11:07] LABS: CA 27.29 66.9 U/mL (0.0-38.6)
== END 2023-08-30 16:03 | disposition home or self-care (01) ==
LOC: LAB 09:28
PROVIDERS: ATTEND Emergency Medicine
DX: C50.019 Malignant neoplasm of nipple and areola, unspecified female breast (principal); D51.9 Vitamin B12 deficiency anemia, unspecified; J70.0 Acute pulmonary manifestations due to radiation; J91.0 Malignant pleural effusion; D68.9 Coagulation defect, unspecified; R97.1 Elevated cancer antigen 125 [CA 125]

== ENCOUNTER 2023-10-11 09:19 | Outpatient (CLI) | payer OTHER | END 2023-10-11 09:22 | disposition home or self-care (01) | LOC: SONOGRAMA 09:19 | PROVIDERS: ATTEND General Practice | DX: C78.7 Secondary malignant neoplasm of liver and intrahepatic bile duct (principal) ==

== ENCOUNTER 2023-10-11 11:07 | Outpatient (CLI) | payer OTHER ==
[2023-10-11 11:46] LABS: HEMATOCRIT 34.8 % (36.0-45.00); HEMOGLOBIN 11.8 g/dL (12.0-15.00); MEAN CELL VOLUME 102.5 fL (80.00-100.00); MEAN CORPUSCULAR HEMOGLOBIN 34.6 pg (27.00-32.0); MEAN CORPUSCULAR HGB CONC 33.8 g/dl (32.0-36.0); PLATELET COUNT 135 K/uL (150-450); RED CELL DISTRIBUTION WIDTH 17.7 % (11.5-14.5)
[2023-10-11 11:57] LABS: INR 1.13; PARTIAL THROMBOPLASTIN TIME 32.2 SECONDS (22.0-34.0); PROTHROMBIN TIME 12.2 SECONDS (9.0-11.5)
[2023-10-11 12:11] LABS: ALBUMIN 3.8 gm/dL (3.4-5.0); BILIRUBIN TOTAL 0.64 mg/dL (0.3-1.2); CALCIUM 9.6 mg/dL (8.5-10.1); CREATININE SERUM 0.61 mg/dL (0.55-1.02); GFR 97.25; GLOBULINA 3.7 G/DL (2.4-3.5); POTASSIUM 4.09 mEq/L (3.5-5.1); TOTAL PROTEIN 7.5 gm/dL (6.4-8.2); TSH 2.06 uIU/mL (0.358-3.74)
[2023-10-11 12:19] LABS: T4 TOTAL 15.37 UG/DL (4.8-13.9)
[2023-10-11 13:36] LABS: T3 TOTAL 1.59 ng/ml (0.846-2.02); VITAMIN D3 25 HYDROXY 25.09 ng/ml (30-120)
[2023-10-12 09:11] LABS: CA 125 11.7 U/mL (0.0-38.1); CA 27.29 52.4 U/mL (0.0-38.6)
== END 2023-10-11 11:30 | disposition home or self-care (01) ==
LOC: LAB 11:07
PROVIDERS: ATTEND Emergency Medicine
DX: C50.919 Malignant neoplasm of unspecified site of unspecified female breast (principal); D50.9 Iron deficiency anemia, unspecified; D51.9 Vitamin B12 deficiency anemia, unspecified; I70.1 Atherosclerosis of renal artery; E55.9 Vitamin D deficiency, unspecified; E03.9 Hypothyroidism, unspecified; E11.9 Type 2 diabetes mellitus without complications; R97.0 Elevated carcinoembryonic antigen [CEA]; D68.9 Coagulation defect, unspecified; C25.9 Malignant neoplasm of pancreas, unspecified; C56.9 Malignant neoplasm of unspecified ovary

== ENCOUNTER 2023-12-17 10:49 | Outpatient (CLI) | payer OTHER | END 2023-12-17 10:57 | disposition home or self-care (01) | LOC: TOM 10:49 | PROVIDERS: ATTEND Internal Medicine | DX: C50.412 Malignant neoplasm of upper-outer quadrant of left female breast (principal); C78.2 Secondary malignant neoplasm of pleura; C78.7 Secondary malignant neoplasm of liver and intrahepatic bile duct ==

== ENCOUNTER 2023-12-17 11:45 | Outpatient (CLI) | payer OTHER ==
[2023-12-17 11:57] LABS: PH,URINE 6.5 (5.0-8.0); URINE APPEARANCE Clear; URINE BILIRRUBIN Negative (NEGATIVE); URINE BLOOD Negative; URINE COLOR Yellow; URINE GLUCOSE Negative (NEGATIVE); URINE KETONE Negative (NEGATIVE); URINE LEUKOCYTE Negative; URINE NITRATE Negative; URINE PROTEIN Negative (NEGATIVE); URINE UROBILINOGEN 0.2 E.U./dl
[2023-12-17 12:01] LABS: URINE BACTERIA 6.2 uL (0.0-1933); URINE WBC 4.4 uL (0.0-23.2)
[2023-12-17 12:06] LABS: URINE EPITHELIAL CELLS 0.7 uL (0.0-38.8); URINE RBC 1.6 uL (0.0-20.8)
[2023-12-17 12:49] LABS: ALBUMIN 3.8 gm/dL (3.4-5.0); BILIRUBIN TOTAL 1.06 mg/dL (0.3-1.2); CALCIUM 9.1 mg/dL (8.5-10.1); CREATININE SERUM 0.69 mg/dL (0.55-1.02); GFR 84.36; GLOBULINA 3.5 G/DL (2.4-3.5); POTASSIUM 4.24 mEq/L (3.5-5.1); T4 FREE 1.46 NG/ML (0.76-1.46); TOTAL PROTEIN 7.3 gm/dL (6.4-8.2); TSH 3.28 uIU/mL (0.358-3.74)
[2023-12-17 13:13] LABS: T3 TOTAL 1.59 ng/ml (0.846-2.02); VITAMIN D3 25 HYDROXY 22.82 ng/ml (30-120)
[2023-12-17 14:20] LABS: HEMATOCRIT 36.1 % (36.0-45.00); HEMOGLOBIN 12.7 g/dL (12.0-15.00); MEAN CELL VOLUME 102.6 fL (80.00-100.00); MEAN CORPUSCULAR HEMOGLOBIN 36.2 pg (27.00-32.0); MEAN CORPUSCULAR HGB CONC 35.3 g/dl (32.0-36.0); PLATELET COUNT 145 K/uL (150-450); RED BLOOD COUNT 3.52 M/uL (4.00-6.00)
== END 2023-12-17 15:40 | disposition home or self-care (01) ==
LOC: LAB 11:45
PROVIDERS: ATTEND Emergency Medicine
DX: C50.412 Malignant neoplasm of upper-outer quadrant of left female breast (principal); C78.2 Secondary malignant neoplasm of pleura; C78.7 Secondary malignant neoplasm of liver and intrahepatic bile duct

== ENCOUNTER 2024-01-28 11:43 | Outpatient (CLI) | payer OTHER ==
[2024-01-28 13:29] LABS: HEMATOCRIT 38.3 % (36.0-45.00); MEAN CELL VOLUME 106.3 fL (80.00-100.00); MEAN CORPUSCULAR HGB CONC 33.9 g/dl (32.0-36.0); PLATELET COUNT 152 K/uL (150-450); RED CELL DISTRIBUTION WIDTH 18.9 % (11.5-14.5)
[2024-01-28 14:11] LABS: ALBUMIN 3.8 gm/dL (3.4-5.0); BILIRUBIN TOTAL 1.26 mg/dL (0.3-1.2); CALCIUM 9.1 mg/dL (8.5-10.1); CREATININE SERUM 0.74 mg/dL (0.55-1.02); GFR 77.81; GLOBULINA 3.5 G/DL (2.4-3.5); POTASSIUM 3.97 mEq/L (3.5-5.1); TOTAL PROTEIN 7.3 gm/dL (6.4-8.2)
[2024-01-28 14:33] LABS: TSH 6.85 uIU/mL (0.358-3.74)
[2024-01-30 06:04] LABS: CA 125 10.6 U/mL (0.0-38.1); CA 15-3 40.6 U/mL (0.0-25.0); CA 27.29 57.7 U/mL (0.0-38.6)
== END 2024-01-29 14:05 | disposition home or self-care (01) ==
LOC: LAB 11:43
PROVIDERS: ATTEND Emergency Medicine
DX: C50.019 Malignant neoplasm of nipple and areola, unspecified female breast (principal); D51.9 Vitamin B12 deficiency anemia, unspecified; R97.8 Other abnormal tumor markers; J70.8 Respiratory conditions due to other specified external agents; J91.0 Malignant pleural effusion; E55.9 Vitamin D deficiency, unspecified; E11.9 Type 2 diabetes mellitus without complications; R97.1 Elevated cancer antigen 125 [CA 125]; E03.9 Hypothyroidism, unspecified

== ENCOUNTER 2024-02-27 08:21 | Outpatient (CLI) | payer OTHER | END 2024-02-27 08:23 | disposition home or self-care (01) | LOC: NUCLEAR 08:21 | PROVIDERS: ATTEND Emergency Medicine | DX: J70.0 Acute pulmonary manifestations due to radiation (principal); J90 Pleural effusion, not elsewhere classified ==

== ENCOUNTER 2024-02-28 14:13 | Outpatient (CLI) | payer OTHER ==
[2024-02-28 14:52] LABS: HEMATOCRIT 36.6 % (36.0-45.00); HEMOGLOBIN 12.6 g/dL (12.0-15.00); MEAN CELL VOLUME 105.1 fL (80.00-100.00); MEAN CORPUSCULAR HEMOGLOBIN 36.3 pg (27.00-32.0); MEAN CORPUSCULAR HGB CONC 34.5 g/dl (32.0-36.0); RED BLOOD COUNT 3.48 M/uL (4.00-6.00); RED CELL DISTRIBUTION WIDTH 17.8 % (11.5-14.5)
[2024-02-28 15:04] LABS: PLATELET COUNT 99 K/uL (150-450)
[2024-02-28 16:37] LABS: ALBUMIN 3.6 gm/dL (3.4-5.0); BILIRUBIN TOTAL 1.63 mg/dL (0.3-1.2); CALCIUM 9.2 mg/dL (8.5-10.1); CREATININE SERUM 0.67 mg/dL (0.55-1.02); GFR 87.27; GLOBULINA 3.3 G/DL (2.4-3.5); POTASSIUM 3.92 mEq/L (3.5-5.1); T4 FREE 1.27 NG/ML (0.76-1.46); TOTAL PROTEIN 6.9 gm/dL (6.4-8.2); TSH 2.93 uIU/mL (0.358-3.74)
[2024-02-29 11:41] LABS: T3 TOTAL 1.37 ng/ml (0.846-2.02); VITAMIN D3 25 HYDROXY 26.13 ng/ml (30-120)
[2024-03-01 10:05] LABS: CA 125 11.5 U/mL (0.0-38.1); CA 15-3 36.6 U/mL (0.0-25.0)
== END 2024-02-28 14:20 | disposition home or self-care (01) ==
LOC: LAB 14:13
PROVIDERS: ATTEND Emergency Medicine
DX: C44.521 Squamous cell carcinoma of skin of breast (principal); C50.919 Malignant neoplasm of unspecified site of unspecified female breast; J70.0 Acute pulmonary manifestations due to radiation; J90 Pleural effusion, not elsewhere classified; D51.9 Vitamin B12 deficiency anemia, unspecified

== ENCOUNTER 2024-03-31 22:28 | Emergency (ER) | payer OTHER ==
[~2024-03-31] VITALS: Ht 170.2 cm; Wt 54.4 kg
[2024-03-31] MEDS ORDERED: SYNTHROID50 MCG PO (22:33)
[2024-03-31] MEDS ORDERED: RINGERS SOLUTION,LACTATED 500 ML IV STA (22:41)
[2024-03-31] MEDS ORDERED: levoFLOXacin IN DEXTROSE 5 % 500MG/100ML PIGGYBAG IV STA (22:43)
[2024-03-31] MEDS ORDERED: BUDESONIDE 0.5 MG/2 ML AMPUL.NEB IH STA (22:45)
[2024-03-31] MEDS ORDERED: ALBUTEROL SULFATE 3 ML/2.5 MG AMPUL.NEB IH SCH (22:45)
[2024-03-31] MEDS ORDERED: GUAIFENESIN 200 MG/10 ML BLIST.PACK PO STA (22:46)
[2024-03-31] MEDS ORDERED: BUDESONIDE 0.5 MG/2 ML AMPUL.NEB IH ONE (23:38)
[2024-03-31] MEDS ORDERED: ALBUTEROL SULFATE 3 ML/2.5 MG AMPUL.NEB IH ONE (23:38)
[2024-03-31 23:53] LABS: MEAN CELL VOLUME 106.5 fL (80.00-100.00); MEAN CORPUSCULAR HEMOGLOBIN 37.4 pg (27.00-32.0); MEAN CORPUSCULAR HGB CONC 35.1 g/dl (32.0-36.0); RED BLOOD COUNT 3.47 M/uL (4.00-6.00)
[2024-03-31 23:55] LABS: PLATELET COUNT 143 K/uL (150-450)
[2024-03-31] MEDS ORDERED: levoFLOXacin IN DEXTROSE 5 % 500MG/100ML PIGGYBAG IV ONE (23:56)
[2024-03-31] MEDS ORDERED: GUAIFENESIN 200 MG/10 ML BLIST.PACK PO ONE (23:56)
[2024-04-01 00:20] LABS: BILIRUBIN TOTAL 0.94 mg/dL (0.3-1.2); CALCIUM 9.3 mg/dL (8.5-10.1); CREATININE SERUM 0.65 mg/dL (0.55-1.02); GFR 90.37; GLOBULINA 4.3 G/DL (2.4-3.5); POTASSIUM 4.21 mEq/L (3.5-5.1); TOTAL PROTEIN 8.3 gm/dL (6.4-8.2)
[2024-04-01 00:28] LABS: C-REACTIVE PROTEIN 3.04 MG/DL (0.00-0.29)
[2024-04-01] MEDS ORDERED: CODEINE/PROMETHAZINE HCL 1 ML ML PO ONE (00:45)
[2024-04-01] MEDS ORDERED: FAMOTIDINE/PF 20 MG/2 ML VIAL ONE (01:54)
[2024-04-01 02:03] LABS: URINE BACTERIA 34.2 uL (0.0-1933); URINE EPITHELIAL CELLS 3.4 uL (0.0-38.8); URINE RBC 4.4 uL (0.0-20.8); URINE WBC 3.4 uL (0.0-23.2)
[2024-04-01 02:16] LABS: PH,URINE 5.5 (5.0-8.0); URINE APPEARANCE Clear; URINE BILIRRUBIN Negative (NEGATIVE); URINE BLOOD Negative; URINE COLOR Yellow; URINE KETONE 15 (NEGATIVE); URINE LEUKOCYTE Negative; URINE NITRATE Negative; URINE PROTEIN 30 (NEGATIVE); URINE UROBILINOGEN 0.2 E.U./dl
[2024-04-01 02:19] LABS: URINE CAST 0.29 uL (0.0-1.40); URINE GLUCOSE 100 MG/DL (NEGATIVE)
[2024-04-01] MEDS ORDERED: LEVOFLOXACIN500 MG PO (02:23)
== END 2024-04-01 02:31 | disposition home or self-care (01) ==
LOC: ER 22:28
PROVIDERS: Emergency Medicine
DX: J40 Bronchitis, not specified as acute or chronic (principal); J00 Acute nasopharyngitis [common cold]; Z20.822 Contact with and (suspected) exposure to COVID-19; Z88.6 Allergy status to analgesic agent; Z91.018 Allergy to other foods

== ENCOUNTER 2024-04-08 07:29 | Outpatient (CLI) | payer OTHER ==
[~2024-04-08 07:29] MED LIST changes: +LEVOFLOXACIN500 MG PO; +SYNTHROID50 MCG PO
== END 2024-04-08 07:35 | disposition home or self-care (01) ==
LOC: SONOGRAMA 07:29
PROVIDERS: ATTEND Emergency Medicine
DX: I97.791 Other intraoperative cardiac functional disturbances during other surgery (principal)

== ENCOUNTER 2024-04-17 10:26 | Outpatient (CLI) | payer OTHER | END 2024-04-17 10:32 | disposition home or self-care (01) | LOC: MRI 10:26 | PROVIDERS: ATTEND Emergency Medicine | DX: C50.919 Malignant neoplasm of unspecified site of unspecified female breast (principal); C78.7 Secondary malignant neoplasm of liver and intrahepatic bile duct | CPT/HCPCS: 74183 ==

== ENCOUNTER 2024-04-25 11:07 | Outpatient (CLI) | payer OTHER ==
[2024-04-25 12:08] LABS: INR 1.15; PARTIAL THROMBOPLASTIN TIME 26.8 SECONDS (22.0-34.0); PROTHROMBIN TIME 12.4 SECONDS (9.0-11.5)
[2024-04-25 12:21] LABS: MEAN CORPUSCULAR HEMOGLOBIN 37.7 pg (27.00-32.0); MEAN CORPUSCULAR HGB CONC 35.2 g/dl (32.0-36.0); PLATELET COUNT 164 K/uL (150-450); RED BLOOD COUNT 3.18 M/uL (4.00-6.00); RED CELL DISTRIBUTION WIDTH 19.7 % (11.5-14.5)
[2024-04-25 12:37] LABS: ALBUMIN 3.6 gm/dL (3.4-5.0); BILIRUBIN TOTAL 0.97 mg/dL (0.3-1.2); CALCIUM 9.1 mg/dL (8.5-10.1); CREATININE SERUM 0.8 mg/dL (0.55-1.02); GFR 71.12; GLOBULINA 3.4 G/DL (2.4-3.5); POTASSIUM 4.25 mEq/L (3.5-5.1)
[2024-04-25 12:40] LABS: TSH 8.12 uIU/mL (0.358-3.74)
[2024-04-26 09:08] LABS: CA 125 17.1 U/mL (0.0-38.1); CA 15-3 55.2 U/mL (0.0-25.0); CA 27.29 87.2 U/mL (0.0-38.6)
== END 2024-04-25 11:24 | disposition home or self-care (01) ==
LOC: LAB 11:07
PROVIDERS: ATTEND Emergency Medicine
DX: C44.521 Squamous cell carcinoma of skin of breast (principal); J70.1 Chronic and other pulmonary manifestations due to radiation; J90 Pleural effusion, not elsewhere classified; R97.1 Elevated cancer antigen 125 [CA 125]; E55.9 Vitamin D deficiency, unspecified; E03.9 Hypothyroidism, unspecified; E11.9 Type 2 diabetes mellitus without complications; R97.8 Other abnormal tumor markers; D68.9 Coagulation defect, unspecified

== ENCOUNTER 2024-06-25 09:38 | Outpatient (CLI) | payer OTHER | END 2024-06-25 09:39 | disposition home or self-care (01) | LOC: NUCLEAR 09:38 | PROVIDERS: ATTEND Emergency Medicine | DX: C50.019 Malignant neoplasm of nipple and areola, unspecified female breast (principal); J70.1 Chronic and other pulmonary manifestations due to radiation; J90 Pleural effusion, not elsewhere classified ==

== ENCOUNTER 2024-06-25 10:20 | Outpatient (CLI) | payer OTHER ==
[2024-06-25 11:13] LABS: BASO % 0.4 % (0.1-1.2); HEMATOCRIT 31.6 % (34.1-44.9); HEMOGLOBIN 10.5 g/dL (11.2-15.7); LYMPH # 0.48 (1.18-3.74); LYMPH % 5.9 % (19.3-53.1); MEAN CORPUSCULAR HEMOGLOBIN 33.1 pg (25.6-32.2); MONO # 0.84 (0.24-0.82); MONO % 10.4 % (4.7-12.5); NEUT # 6.62 (1.56-6.13); NEUT % 81.8 % (34.0-71.1); PLATELET COUNT 280 K/uL (163-369); RED BLOOD COUNT 3.17 M/uL (3.93-5.22); RED CELL DISTRIBUTION WIDTH 13.6 % (11.6-14.4)
[2024-06-25 11:27] LABS: INR 1.1; PARTIAL THROMBOPLASTIN TIME 31.5 SECONDS (22.0-34.0); PROTHROMBIN TIME 11.9 SECONDS (9.0-11.5)
[2024-06-25 12:10] LABS: ALBUMIN 3.7 gm/dL (3.4-5.0); BILIRUBIN TOTAL 0.52 mg/dL (0.3-1.2); CALCIUM 8.9 mg/dL (8.5-10.1); CREATININE SERUM 0.53 mg/dL (0.55-1.02); GFR 114.04; GLOBULINA 2.9 G/DL (2.4-3.5); POTASSIUM 3.92 mEq/L (3.5-5.1); TOTAL PROTEIN 6.6 gm/dL (6.4-8.2)
[2024-06-26 05:07] LABS: CA 125 13.6 U/mL (0.0-38.1); CA 15-3 59.4 U/mL (0.0-25.0)
[2024-06-26 07:11] LABS: CA 27.29 103.2 U/mL (0.0-38.6)
== END 2024-06-25 14:43 | disposition home or self-care (01) ==
LOC: LAB 10:20
PROVIDERS: ATTEND Emergency Medicine
DX: J70.1 Chronic and other pulmonary manifestations due to radiation (principal); J90 Pleural effusion, not elsewhere classified; D51.9 Vitamin B12 deficiency anemia, unspecified; D68.8 Other specified coagulation defects; R97.8 Other abnormal tumor markers

== ENCOUNTER 2024-07-16 08:51 | Outpatient (CLI) | payer OTHER | END 2024-07-16 12:00 | disposition home or self-care (01) | LOC: MRI 08:51 | PROVIDERS: ATTEND Radiology Radiation Oncology | DX: C78.7 Secondary malignant neoplasm of liver and intrahepatic bile duct (principal) | CPT/HCPCS: 74183 ==

== ENCOUNTER 2024-07-22 13:42 | Outpatient (CLI) | payer OTHER ==
[2024-07-22 14:58] LABS: INR 1.09; PARTIAL THROMBOPLASTIN TIME 28.1 SECONDS (22.0-34.0); PROTHROMBIN TIME 11.8 SECONDS (9.0-11.5)
[2024-07-22 15:10] LABS: ALBUMIN 3.4 gm/dL (3.4-5.0); BILIRUBIN TOTAL 0.5 mg/dL (0.3-1.2); CALCIUM 9.2 mg/dL (8.5-10.1); CHOL HDL RATIO 2.5 (0-5.0); CREATININE SERUM 0.7 mg/dL (0.55-1.02); GFR 82.72; GLOBULINA 3.4 G/DL (2.4-3.5); POTASSIUM 3.9 mEq/L (3.5-5.1); T4 FREE 1.23 NG/ML (0.76-1.46); TOTAL PROTEIN 6.8 gm/dL (6.4-8.2); TSH 2.31 uIU/mL (0.358-3.74)
[2024-07-22 15:16] LABS: T3 TOTAL 1.24 ng/ml (0.846-2.02); VITAMIN D3 25 HYDROXY 30.24 ng/ml (30-120)
[2024-07-22 15:17] LABS: BASO % 0.6 % (0.1-1.2); EOS # 0.35 (0.04-0.54); EOS % 7.3 % (0.7-7.0); HEMATOCRIT 31.7 % (34.1-44.9); HEMOGLOBIN 10.8 g/dL (11.2-15.7); LYMPH # 0.68 (1.18-3.74); LYMPH % 14.1 % (19.3-53.1); MEAN CORPUSCULAR HEMOGLOBIN 33.8 pg (25.6-32.2); MONO % 8.3 % (4.7-12.5); NEUT # 3.35 (1.56-6.13); NEUT % 69.5 % (34.0-71.1); PLATELET COUNT 210 K/uL (163-369); RED CELL DISTRIBUTION WIDTH 13.2 % (11.6-14.4)
[2024-07-24 07:11] LABS: CA 27.29 67.5 U/mL (0.0-38.6)
[2024-07-24 09:08] LABS: CA 15-3 40.1 U/mL (0.0-25.0)
== END 2024-07-22 14:00 | disposition home or self-care (01) ==
LOC: LAB 13:42
PROVIDERS: ATTEND Emergency Medicine
DX: C50.019 Malignant neoplasm of nipple and areola, unspecified female breast (principal); D51.9 Vitamin B12 deficiency anemia, unspecified; J90 Pleural effusion, not elsewhere classified; J70.0 Acute pulmonary manifestations due to radiation; J91.0 Malignant pleural effusion; E03.8 Other specified hypothyroidism; E55.9 Vitamin D deficiency, unspecified; D68.9 Coagulation defect, unspecified; E74.00 Glycogen storage disease, unspecified; R73.09 Other abnormal glucose; E78.9 Disorder of lipoprotein metabolism, unspecified

== ENCOUNTER 2024-09-03 11:28 | Outpatient (CLI) | payer OTHER ==
[2024-09-03 13:06] LABS: BASO % 0.4 % (0.1-1.2); EOS # 0.05 (0.04-0.54); EOS % 1.8 % (0.7-7.0); LYMPH # 0.58 (1.18-3.74); LYMPH % 20.9 % (19.3-53.1); MEAN PLATELET VOLUME 11.10 fl (9.4-12.4); MONO # 0.29 (0.24-0.82); MONO % 10.5 % (4.7-12.5); NEUT # 1.83 (1.56-6.13); NEUT % 66.0 % (34.0-71.1); RED CELL DISTRIBUTION WIDTH 12.3 % (11.6-14.4)
[2024-09-03 14:30] LABS: ALT/SGPT 16.0 U/L (12-78); AST/SGOT 16.0 U/L (15-37); BILIRUBIN TOTAL 0.37 mg/dL (0.3-1.2); BUN CREA RATIO 19.0 (7.0-25.0); CREATININE SERUM 0.74 mg/dL (0.55-1.02); GFR 77.59; GLOBULINA 3.7 G/DL (2.4-3.5); GLUCOSE FASTING 126.0 mg/dL (65-100); LDH 182.0 U/L (84-246); OSMOLALITY SERUM 285.0 MOSM/KG (275-295); TSH 2.45 uIU/mL (0.358-3.74)
[2024-09-05 07:10] LABS: CA 27.29 51.7 U/mL (0.0-38.6)
[2024-09-05 09:08] LABS: CA 125 9.8 U/mL (0.0-38.1); CA 15-3 29.2 U/mL (0.0-25.0)
[2024-09-05 11:12] LABS: VITAMIN D 1 25 53.3 pg/mL (24.8-81.5)
== END 2024-09-03 14:46 | disposition home or self-care (01) ==
LOC: LAB 11:28
PROVIDERS: ATTEND Emergency Medicine
DX: N60.29 Fibroadenosis of unspecified breast (principal); C50.019 Malignant neoplasm of nipple and areola, unspecified female breast; D51.9 Vitamin B12 deficiency anemia, unspecified; J70.1 Chronic and other pulmonary manifestations due to radiation; J90 Pleural effusion, not elsewhere classified; R42 Dizziness and giddiness; E11.9 Type 2 diabetes mellitus without complications; R97.8 Other abnormal tumor markers; C50.911 Malignant neoplasm of unspecified site of right female breast; R75 Inconclusive laboratory evidence of human immunodeficiency virus [HIV]

== ENCOUNTER 2024-09-29 14:59 | Outpatient (CLI) | payer OTHER ==
[2024-09-30 06:54] LABS: ALT/SGPT 26.0 U/L (12-78); AST/SGOT 34.0 U/L (15-37); BILIRUBIN TOTAL 0.41 mg/dL (0.3-1.2); BUN CREA RATIO 29.0 (7.0-25.0); CREATININE SERUM 0.63 mg/dL (0.55-1.02); GFR 93.42; GLOBULINA 3.5 G/DL (2.4-3.5); GLUCOSE FASTING 95.0 mg/dL (65-100); OSMOLALITY SERUM 285.0 MOSM/KG (275-295)
[2024-09-30 06:58] LABS: LDH 176.0 U/L (84-246)
[2024-09-30 07:22] LABS: MEAN PLATELET VOLUME 10.10 fl (9.4-12.4); RED CELL DISTRIBUTION WIDTH 12.5 % (11.6-14.4)
[2024-09-30 07:23] LABS: BASO % 0.5 % (0.1-1.2); EOS % 1.6 % (0.7-7.0); LYMPH % 16.1 % (19.3-53.1); MONO % 11.8 % (4.7-12.5); NEUT % 69.7 % (34.0-71.1)
[2024-09-30 07:27] LABS: EOS # 0.06 (0.04-0.54); LYMPH # 0.60 (1.18-3.74); MONO # 0.44 (0.24-0.82); NEUT # 2.59 (1.56-6.13)
== END 2024-09-29 15:07 | disposition home or self-care (01) ==
LOC: LAB 14:59
PROVIDERS: ATTEND Emergency Medicine
DX: D68.8 Other specified coagulation defects (principal)